=== PATIENT | male | born 1955 | race Caucasian/White ===

== ENCOUNTER 2020-11-24 09:12 | Outpatient (CLI) | payer BC ==
[2020-11-24 10:01] LABS: Estimated GFR-MDRD - POC Greater than 90
== END 2020-11-24 09:13 | disposition home or self-care (01) ==
LOC: CSHCT 09:12
PROVIDERS: ATTEND Urology
DX: R31.29 Other microscopic hematuria (principal)
CPT/HCPCS: 74178; 82565

== ENCOUNTER 2023-08-08 15:40 | Outpatient (CLI) | payer BC | END 2023-08-08 15:41 | disposition home or self-care (01) | LOC: CSHRAD 15:40 | PROVIDERS: ATTEND Family Medicine | DX: M54.32 Sciatica, left side (principal); M47.816 Spondylosis without myelopathy or radiculopathy, lumbar region; M43.17 Spondylolisthesis, lumbosacral region | CPT/HCPCS: 72100 ==